=== PATIENT | female | born 1975 | race Hispanic/Latino ===

== ENCOUNTER 2016-08-14 14:41 | Emergency (ER) | payer OTHER ==
[~2016-08-14] VITALS: Ht 157.5 cm; Wt 61.2 kg
--- NOTE | 2016-08-14 16:19 | ED GI/GU/ABDOMINAL COMPLAINT ---
History of Present Illness General Chief Complaint: Nausea, Vomiting, Diarrhea Stated Complaint: VOMITING, NAUSEA , 14 WEEKS PREG Source: patient Exam Limitations: no limitations Vital Signs & Intake/Output Vital Signs & Intake/Output Vital Signs Date Time Temp Pulse Resp B/P Pulse O2 O2 Flow FiO2 Ox Delivery Rate 08/14 1450 97.7 104 20 114/79 99 Room Air Allergies Coded Allergies: NO KNOWN ALLERGIES (08/14/16) Reconcile Medications No Known Home Medications Triage Note: TRIAGE: PT TO ER WITH FRIEND C/C L SIDED HEAD PAIN AND VOMITING. X 3 DAYS. PAIN IS TO L SIDE OF HEAD. VOMITED X 4-5 TODAY. UNABLE TO TOLERATE PO LIQUIDS OR SOLIDS. PT CURRENTLY 14 WEEKS , DUE DATE 02/12/2017. . PT OF DR SORIANO. DENIES ANY COMPLICATIONS WITH . DENIES ANY ABDOMINAL PAIN. Triage Nurses Notes Reviewed? yes ? y Is pt currently ? No HPI: Patient presents for evaluation of nausea vomiting during . Patient is currently 14 weeks and hasn't established IUP. She sees Alana Soriano MD. The nausea and vomiting began about 3 days ago abruptly with an associated left sided periorbital headache that began yesterday. She has had headaches associated with her entire . Past History Travel History Traveled to [place] past 21 day No Medical History Any Pertinent Medical History? 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 No Review of Systems Review of Systems Constitutional: Reports: no symptoms. EENTM: Reports: no symptoms. Respiratory: Reports: no symptoms. Cardiovascular: Reports: no symptoms. GI: Reports: see HPI. Genitourinary: Reports: no symptoms. Musculoskeletal: Reports: no symptoms. Skin: Reports: no symptoms. Neurological/Psychological: Reports: no symptoms. Hematologic/Endocrine: Reports: no symptoms. Immunologic/Allergic: Reports: no symptoms. All Other Systems: Reviewed and Negative Physical Exam Physical Exam Gastrointestinal: normal bowel sounds (see below), see below Comments: Gen.: Well-nourished, well-developed, no acute respiratory distress. Head: Normocephalic, atraumatic. Eyes: Normal inspection bilaterally Ears: Normal inspection bilaterally Nose: Normal inspection Throat/mouth : Moist mucosa Neck: Supple, full range of motion, no goiter Heart: Regular rate and rhythm, no murmurs rubs or gallops Lungs: Clear to auscultation bilaterally with normal air entry Chest: Nontender Back: Normal range of motion Abdomen: Soft, nontender, nondistended, normal bowel sounds gravid, fundus at the appropriate height based on age Extremities: Normal range of motion grossly, equal radial pulses, no cyanosis clubbing or edema Neurologic: Cranial nerves grossly intact, speech is clear Skin: warm and dry Psychiatric: Calm, cooperative, no apparent delusions or hallucinations Core Measures ACS in differential dx? No Severe Sepsis Present: No Septic Shock Present: No Progress Differential Diagnosis: viral gastritis, hyperemesis gravidarum Plan of Care: Zofran, SWATCH FOLDER follow-up Initial ED EKG: none Comments: 08/14/2016 5:15:59 PM patient appears more comfortable and states she is feeling much better. She has tolerated a few sips of water. Departure Departure Disposition: HOME OR SELF CARE Condition: Stable Clinical Impression Primary Impression: Hyperemesis gravidarum Referrals: ANKITA GRIMM,EAMON Duque (PCP/Family) Additional Instructions: Zofran as needed for nausea or vomiting. Clear liquid diet and advance as tolerated. Follow-up with your SWATCH FOLDER doctor this week. Return if any concerns or sudden worsening. Thank you for choosing the [facility] Emergency Department for your care. It was a pleasure to serve you today. Calvin Eemry M.D. [facility] Departure Forms: Customer Survey General Discharge Information Prescriptions: Current Visit Scripts Ondansetron (Zofran Odt) 1 TAB SL Q6P PRN NAUSEA/VOMITING #10 TAB
[2016-08-14] MEDS ORDERED: ZOFRAN ODT4 M1 SL (17:43)
[2016-08-14 18:06] VITALS: BP 112/65
== END 2016-08-14 18:08 ==
LOC: ERH 14:41
DX: O21.0 Mild hyperemesis gravidarum (principal)
CPT/HCPCS: 96374; J2405

== ENCOUNTER 2016-09-01 22:17 | Emergency (ER) | payer OTHER ==
[~2016-09-01] VITALS: Ht 157.5 cm; Wt 62.6 kg
[~2016-09-01 22:17] MED LIST: ZOFRAN ODT4 M1 SL
--- NOTE | 2016-09-02 00:04 | ED GENERAL ADULT ---
History of Present Illness General Chief Complaint: Neck/Upper Back Pain/Injury Stated Complaint: BACK PAIN, 4 MONTHS PER PT Source: patient Exam Limitations: no limitations Vital Signs & Intake/Output Vital Signs & Intake/Output Vital Signs Date Time Temp Pulse Resp B/P Pulse O2 O2 Flow FiO2 Ox Delivery Rate 09/02 0124 98.1 94 18 117/80 100 Room Air 09/01 2228 97.4 96 18 116/78 100 Room Air ED Intake and Output 09/02 0000 09/01 1200 Intake Total Output Total Balance Patient 138 lb Weight Allergies Coded Allergies: NO KNOWN ALLERGIES (08/14/16) Reconcile Medications Ondansetron (Zofran Odt) 4 MG TAB.RAPDIS 1 TAB SL Q6P PRN NAUSEA/VOMITING Triage Note: PT 17WEEKS TO TRIAGE WITH C/O LOWER BACK PAIN 03/26 x2DAYS. PT DENIES ANY OTHER COMPLAINTS, DENIES ABD PAIN/CRAMPING, DENIES VAGINAL DISCHARGE. VSS. PT CLEARED BY CBC TO BE SEEN IN ER. Triage Nurses Notes Reviewed? yes Onset: Abrupt Duration: day(s): Timing: recent history : Yes Patient currently breastfeeds: No HPI: 09/02/16 12:22 am This is a 40-year-old female who is 4 months who presents to the emergency department complaining of bilateral low back pain over the past 2 days. The patient states she was in her usual state of health until the past 2 days. She says she's had some low back pain but this is been worse. She denies fever, abdominal pain, vaginal bleeding or other complaints. She was initially evaluated in the childbirth center. She has a past surgical history for right salpingo-oophorectomy for ectopic . She is a 2 para 3. She has no abdominal pain or dysuria. No known drug allergies. No medications. The onset of the symptoms been abrupt , the duration has been 2 days, the severity is significant as her symptoms required to come to the emergency department for care Past History Travel History Traveled to [place] past 21 day No Medical History Any Pertinent Medical History? 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 No Review of Systems Review of Systems Constitutional: Denies: fever. EENTM: Denies: visual changes. Respiratory: Denies: short of breath. Cardiovascular: Denies: chest pain. GI: Denies: abdominal pain. Genitourinary: Denies: dysuria. Musculoskeletal: Reports: back pain. Skin: Denies: rash. Neurological/Psychological: Denies: headache. Hematologic/Endocrine: Denies: bleeding. Physical Exam Physical Exam General Appearance: well developed/nourished, alert, awake, anxious, mild distress Head: atraumatic, normal appearance Eyes: Bilateral: normal appearance, PERRL, EOMI. Ears, Nose, Throat: normal pharynx, normal ENT inspection Neck: normal inspection, supple, full range of motion Respiratory: normal breath sounds, chest non-tender, no respiratory distress Cardiovascular: regular rate/rhythm Peripheral Pulses: 4+ radial (R), 4+ radial (L) Gastrointestinal: soft, non-tender ( uterus above the umbilicus) Back: decreased range of motion, muscle spasm Extremities: normal inspection, normal range of motion, no edema Neurologic/Psych: no motor/sensory deficits, awake, alert, oriented x 3 Skin: intact, normal color, warm/dry Comments: upon physical exam she has bilateral lower lumbar muscle tightness. she has been using a nonopiate analgesic patch for the pain. her abdomen is completely nontender. the pain is worse when she bends for. her pain is consistent with bilateral lumbar strain. ultrasound was negative for evidence of UTI. labor was considered but she has no abdominal pain, and has been already evaluated in the child center. Core Measures ACS in differential dx? No CVA/TIA Diagnosis: No Severe Sepsis Present: No Septic Shock Present: No Progress Differential Diagnoses I considered the following diagnoses in my evaluation of the patient: [ placental abruption - no abdominal pain, and she was evaluated in the childbirth center, labor, pyelonephritis, UTI, lumbar strain] Plan of Care: Orders Procedure Date/time Status CULTURE,URINE 09/02 0025 Active URINALYSIS 09/02 0025 Complete Laboratory Tests 09/02/16 0044: Urine Color YEL, Urine Clarity CLEAR, Urine pH 6.5, Ur Specific [place] 1.010, Urine Protein NEG, Urine Ketones NEG, Urine Nitrite NEG, Urine Bilirubin NEG, Urine Urobilinogen 0.2, Ur Leukocyte Esterase NEG, Ur Microscopic EXAM NOT REQUIRED, Urine Hemoglobin NEG, Urine Glucose NEG Microbiology 09/02 0044 URINE ROUT: Urine Culture - RECD Initial ED EKG: none Departure Departure Disposition: HOME OR SELF CARE Condition: Stable Clinical Impression Primary Impression: Lumbar strain Secondary Impressions: Referrals: ANKITA GRIMM,EAMON Duque (PCP/Family) Departure Forms: Customer Survey General Discharge Information Comments 09/02/16 1:15 AM. I spoke with Dr. Richardson, he agrees with the plan of care. urinalysis is negative, vital signs are stable, she has no abdominal pain. I think she has muscular low back pain. She will take Tylenol as needed for pain and follow-up with Dr. Gomez on Saturday, or return to the emergency department if worse. she did get significant relief from Tylenol and was ambulating without difficulty. Critical Care Note Critical Care Note Critical Care Time: non-applicable
[2016-09-02 01:24] VITALS: BP 117/80
== END 2016-09-02 16:16 ==
LOC: ERH 22:17
DX: O9A.212 Injury, poisoning and certain other consequences of external causes complicating pregnancy, second trimester (principal); S39.012A Strain of muscle, fascia and tendon of lower back, initial encounter; X58.XXXA Exposure to other specified factors, initial encounter
CPT/HCPCS: 81003; 87086